=== PATIENT | male | born 1990 | race Caucasian/White ===

== ENCOUNTER 2019-08-27 20:39 | Emergency (ER) | payer MEDICAID ==
[~2019-08-27] VITALS: Ht 170.2 cm; Wt 77.1 kg
[2019-08-27 21:16] VITALS: BP_SYST 156
--- NOTE | 2019-08-27 21:24 | NUR ---
Pt placed to ER waiting room via W/C in stable condition.
--- NOTE | 2019-08-27 21:37 | NUR ---
Pt placed to ER hallway bed 1. Report given to TRAE Dunn.
--- NOTE | 2019-08-27 21:37 | NUR ---
Lashonda kearns in ED - 08/27/19 at 2140 by ALEYDA Pt placed to bed 04. Report given to TRAE Shipley.
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
--- NOTE | 2019-08-27 21:58 | NUR ---
Pt to X-ray via W/C.
--- NOTE | 2019-08-27 22:22 | NUR ---
ER at bedside examining patient.
--- NOTE | 2019-08-27 22:25 | NUR ---
Pt moved to ER bed 01 for moderate sedation procedure.
--- NOTE | 2019-08-27 22:30 | NUR ---
Lashonda kearns in [facility] - 08/27/19 at 2231 by [email or web address] Pt moved to bed 01
[2019-08-27] MEDS ORDERED: ETOMIDATE 20 MG/ 10 ML VIAL (AMIDATE) IVP ONE (23:30)
--- NOTE | 2019-08-27 23:52 | NUR ---
Pre-Procedure Time-out performed.
--- NOTE | 2019-08-27 23:54 | NUR ---
Moderate sedation procedure for closed reduction of L ankle initiated. See Moderate Sedation record for procedure details.
--- NOTE | 2019-08-28 | NUR ---
Long Leg Posterior splint applied to L ankle/leg post reduction. strong pulse noted. Capillary refill <3 seconds. Patient has ability to move non-splinted digits. Has sensation present to affected site. Skin color within normal limits. Applied for pain management control.
--- NOTE | 2019-08-28 00:22 | NUR ---
Pt awake, alert, oriented x4. Pt states he has unrelieved pain in L ankle.
[2019-08-28] MEDS ORDERED: MORPHINE 4 MG/ML INJ. SYRINGE IVP ONE (00:30)
[2019-08-28] MEDS ORDERED: ONDANSETRON HCL 4 MG/2 ML VIAL IVP ONE (00:30)
--- NOTE | 2019-08-28 00:30 | NUR ---
Post-reduction Xrays evaluated by . Reduction not successful. 2nd attempt will be made to perform reduction.
[2019-08-28] MEDS ORDERED: ETOMIDATE 20 MG/ 10 ML VIAL (AMIDATE) IVP ONE (01:00)
--- NOTE | 2019-08-28 01:20 | NUR ---
Long leg posterior splint removed pr
--- NOTE | 2019-08-28 01:21 | NUR ---
Pre-Procedure Team Time-out performed.
--- NOTE | 2019-08-28 01:23 | NUR ---
Moderate sedation procedure for closed reduction of L ankle initiated. See Moderate Sedation record for procedure details.
--- NOTE | 2019-08-28 02:20 | NUR ---
Pt is awake, alert, oriented x4. Pt is appropriate, able to willfully follow all commands, move all extremeties.
--- NOTE | 2019-08-28 02:40 | NUR ---
Bedside explaining results and procedure to patient. Informed patient of the need to see PMD to have orthopedic surgery performed. Pt aknowledges and understands.
--- NOTE | 2019-08-28 02:55 | NUR ---
Pt Educated on proper use of crutches. Patient return demonstrated crutch use with good balance.
[2019-08-28 03:12] VITALS: BP_SYST 127
--- NOTE | 2019-08-28 03:12 | NUR ---
Patient given written and verbal discharge instructions and verbalizes understanding. ER MD discussed with patient the results and treatment provided. Patient in stable condition. ID arm band removed. IV catheter removed intact and dressing applied, no active bleeding. Rx of Morrison 5/325, Ibuprofen given. Patient educated on pain management and to follow up with PMD. Pain Scale 4/10. Opportunity for questions provided and answered. Medication side effect fact sheet provided.
== END 2019-08-28 03:12 | disposition home or self-care (01) ==
LOC: SED 20:39
DX: S82.842A Displaced bimalleolar fracture of left lower leg, initial encounter for closed fracture (principal); F17.210 Nicotine dependence, cigarettes, uncomplicated; F12.90 Cannabis use, unspecified, uncomplicated; X58.XXXA Exposure to other specified factors, initial encounter; Y93.89 Activity, other specified; Y92.89 Other specified places as the place of occurrence of the external cause; Y99.8 Other external cause status
CPT/HCPCS: 27788; 73600; 73610; 73630; 96374; 96375; 99152; 99153; 99285; J2270; J2405; J3490 ×2

== ENCOUNTER 2020-03-11 08:38 | Emergency (ER) | payer SELFPAY ==
[~2020-03-11] VITALS: Ht 152.4 cm; Wt 68.0 kg
[2020-03-11 08:38] VITALS: BP_SYST 137
[2020-03-11 08:59] VITALS: BP_SYST 137
== END 2020-03-11 08:59 | disposition home or self-care (01) ==
LOC: SED 08:38
DX: Z02.89 Encounter for other administrative examinations (principal); J45.909 Unspecified asthma, uncomplicated
CPT/HCPCS: 99283